=== PATIENT | male | born 1970 | race Caucasian/White ===

== ENCOUNTER 2023-10-31 09:07 | Day surgery (SDC) | payer MEDICARE, OTHER ==
[~2023-10-31] VITALS: Ht 165.1 cm; Wt 68.0 kg
[2023-10-31] VITALS (8 sets, daily range): BP systolic 131–174; BP diastolic 84–108
[~2023-10-31 09:07] MED LIST: ALLO100 PO; DERMACINRX FOL1 EAC2 PO; IBUP200 PO; L-Lysine500 M1 PO; LOKELMA10 GM PO; MELA3 PO; METO50ER PO; SODBIC650 PO; ZYRTEC10 M1 PO
[2023-10-31] MEDS ORDERED: NS 250 ML IV ONE (10:08)
[2023-10-31] MEDS ORDERED: Heparin Sodium 1000 Units/ML 10ML MDV ONE (10:08)
[2023-10-31] MEDS ORDERED: B-12500 MC2 PO (10:14)
[2023-10-31] MEDS ORDERED: VITAMIN D5000 UNIT PO (10:14)
[2023-10-31] MEDS ORDERED: FISH OIL 1,0001 EA10 PO (10:15)
[2023-10-31] MEDS ORDERED: FOLI1 PO (10:15)
[2023-10-31] MEDS ORDERED: Midazolam HCl 1MG / ML 2ML Vial ONE (10:58)
[2023-10-31] MEDS ORDERED: NS 500 ML IV ONE (10:59)
[2023-10-31] MEDS ORDERED: FentaNYL Citrate 50 MCG/ML 2 ML Injection ONE (10:59)
--- NOTE | 2023-10-31 12:00 | NUR ---
ASSUMED CARE OF PT POST PROCEDURE. PT AWAKE AND ANSWERING QUESTIONS; DENIES PAIN. MONITOR SB/SR 50-60'S, B/P 160/95, SPO2 98% RA. R CHEST DIALYSIS CATH NO SWELLING/HEMATOMA, BIOPATCH AND TEGADERM DRSG INTACT.
--- NOTE | 2023-10-31 12:20 | NUR ---
PT TAKING LUNCH WITHOUT ISSUE.
--- NOTE | 2023-10-31 13:25 | NUR ---
PT AMB TO BATHROOM, GAIT STEADY, SITE UNCHANGED.
--- NOTE | 2023-10-31 13:50 | NUR ---
PT DRESSED SELF WITHOUT ISSUE, IV REMOVED-CANNULA INTACT.
--- NOTE | 2023-10-31 14:03 | NUR ---
PT AND SISTER RECEIVED DISCHARGE INSTRUCTIONS, MED LIST AND AFTER CARE INSTRUCTIONS; VERBALIZED GOOD UNDERSTANDING. PT LEFT FACILITY VIA W/C, CONDITION STABLE.
== END 2023-10-31 14:03 | disposition home or self-care (01) ==
LOC: MHTC 09:07
DX: I12.0 Hypertensive chronic kidney disease with stage 5 chronic kidney disease or end stage renal disease (principal); N18.6 End stage renal disease; Q90.9 Down syndrome, unspecified; K21.9 Gastro-esophageal reflux disease without esophagitis; E78.00 Pure hypercholesterolemia, unspecified; Z88.0 Allergy status to penicillin; Z79.899 Other long term (current) drug therapy
CPT/HCPCS: 36558; 76937; 99152; C1750; C1769; C1894; J1644; J2250; J3010; J7040; J7050

== ENCOUNTER 2024-09-19 10:34 | Day surgery (SDC) | payer MEDICARE, OTHER ==
[~2024-09-19] VITALS: Ht 165.1 cm; Wt 74.0 kg
[~2024-09-19 10:34] MED LIST changes: +B-12500 MC2 PO; +CLOP75 PO; +Calcium Acetat667 MG PO; +FISH OIL 1,0001 EA10 PO; +FOLI1 PO; +IBUP200; +MULTIVITAMIN; +VITAMIN D5000 UNIT PO
[2024-09-19] MEDS ORDERED: FentaNYL Citrate 50 MCG/ML 2 ML Injection ONE (11:01)
[2024-09-19] MEDS ORDERED: Midazolam HCl 1MG / ML 2ML Vial ONE (11:01)
[2024-09-19] MEDS ORDERED: NS 1,000 ML IV ONE ×2 (11:02→11:06)
[2024-09-19] MEDS ORDERED: Heparin Sodium 1000 Units/ML 10ML MDV ONE (11:06)
[2024-09-19] MEDS ORDERED: Verapamil HCL 2.5 MG/ML 2ML Injection ONE (11:07)
[2024-09-19] MEDS ORDERED: Nitroglycerin 2 MG/20 ML BTL ONE (11:07)
[2024-09-19 11:23] VITALS: BP 106/78
--- NOTE | 2024-09-19 13:07 | NUR ---
PT ARRIVES BACK TO RECOVERY ROOM, ALERT AND ORIENTED. LEFT VENOUS ACCESS WNL, NO OOZING NO SWELLING. PT SISTER WILLIE CALLED TO UPDATE, PLANS TO PICK PT UP IN 1 HOUR. PT. VSS AT THIS TIME. LUNCH TRAY PROVIDED.
[2024-09-19 13:24] VITALS: BP 101/75
[2024-09-19 13:30] VITALS: BP 111/81
[2024-09-19 13:45] VITALS: BP 119/105
[2024-09-19 14:00] VITALS: BP 125/94
--- NOTE | 2024-09-19 14:24 | NUR ---
PT prepared for discharge, iv removed catheter intact. Pt. vss upon discharge. pt sister called for transport and to update on discharge plan. Pt. able to get self dressed with out difficulty. Taken via wheelchair to exit.
== END 2024-09-19 14:31 | disposition home or self-care (01) ==
LOC: MHTC 10:34
DX: T82.590A Other mechanical complication of surgically created arteriovenous fistula, initial encounter (principal); I12.0 Hypertensive chronic kidney disease with stage 5 chronic kidney disease or end stage renal disease; N18.6 End stage renal disease; D63.1 Anemia in chronic kidney disease; K21.9 Gastro-esophageal reflux disease without esophagitis; E78.00 Pure hypercholesterolemia, unspecified; Z88.0 Allergy status to penicillin; Z79.899 Other long term (current) drug therapy
CPT/HCPCS: 36901; 76937; 99152; 99153; C1769; C1887; C1894; J1644; J2250; J3010; J7030; Q9967